=== PATIENT | female | born 1960 | race Caucasian/White ===

== ENCOUNTER 2021-07-19 10:23 | Emergency (ER) | payer OTHER, SELFPAY ==
[2021-07-19] MEDS ORDERED: ONDANSETRON 4 MG/2 ML VIAL ONE (10:55)
[2021-07-19] MEDS ORDERED: NA CHLORIDE 0.9% 500 ML ONE (10:55)
[2021-07-19 11:14] LABS: Absolute Lymphocytes (CBC) 2.1 K/uL (0.7-4.9); Basophils % 0.7 % (0-1.3); Hematocrit 40.6 % (36.0-45.0); MPV 7.1 fL (7.6-11.3); RBC Red Blood Cell Count 4.24 M/uL (3.86-4.86)
[2021-07-19 11:28] LABS: Albumin 4.1 g/dL (3.4-5.0); Bilirubin Direct 0.1 mg/dL (0-0.2); Bilirubin Total 0.4 mg/dL (0.2-1.0); Potassium 3.9 mmol/L (3.5-5.1)
--- NOTE | 2021-07-19 12:22 | RAD REPORT ---
EXAM DESCRIPTION: CT - Abdomen Pelvis W Contrast - 07/19/2021 11:57 am CLINICAL HISTORY: Abd pain;Nausea / vomiting COMPARISON: No comparisons TECHNIQUE: Biphasic, helical CT imaging of the abdomen and pelvis was performed following 100 ml non -ionic IV contrast. No oral contrast administered. All CT scans are performed using dose optimization technique as appropriate and may include automated exposure control or mA/KV adjustment according to patient size. FINDINGS: No suspicious findings in the lung bases. Liver size is normal with no focal liver parenchymal lesion. No portal vein abnormality seen. There i s no liver capsule nodularity. No splenomegaly or focal splenic finding. No mass in the pancreatic pa renchyma. Pancreatic duct is mildly prominent. No peripancreatic fluid or inflammatory stranding. Well filled gallbladder shows no wall thickening or edema. Gallstones can be occult on CT imaging. B iliary tree is prominent and there is pneumobilia in the nondependent left lobe biliary tree radicles . Correlation is needed with any prior sphincterotomy procedure. Duct stones can be occult. Symmetric renal function is seen with no hydronephrosis or suspicious renal mass. No pyelonephritis o r acute parenchymal process. No bladder abnormalities. No adrenal abnormalities. Uterus is absent. Ov ann are absent or atrophic. No adnexal mass identified. Stearns of gastric antrum appears thickened and edematous. Small focal fluid collection (image 26/91) i s favored to be fluid trapped between mucosal folds rather than a wall ulceration or fluid collection . No dilated large or small bowel. No appendicitis findings. No free air or pneumatosis. No hernia, m ass or bulky lymphadenopathy. No suspicious bony findings. Dense for age arterial tree calcifications present in the upper abdomen. IMPRESSION: Wall thickening and edema of the gastric antrum suspicious for the gastric antritis, pos sibly with ulceration. Correlation is needed with clinical presentation. Well filled gallbladder seen without wall thickening or edema. Biliary tree shows mild dilatation wit h pneumobilia in the left lobe biliary radicles. Correlation is needed with any prior sphincterotomy procedure. A duodenal or pancreatic head mass is not seen.
[2021-07-19] MEDS ORDERED: MAGNES/ALUMIN/SIMET 30ML UCUP ONE (13:52)
[2021-07-19] MEDS ORDERED: MORPHINE 4 MG/ML SYR ONE (13:53)
[2021-07-19] MEDS ORDERED: LIDOCAINE VISCOUS 2% SOLN 15 ML UDC ONE (13:53)
[2021-07-19] MEDS ORDERED: PANTOPRAZOLE 40 MG INJ ONE (13:55)
--- NOTE | 2021-07-19 14:02 | EDPHYS ---
Physician Documentation [facility] Name: Valeri Lincoln Age: 60 yrs Sex: Female : 1960 Arrival Date: 07/19/2021 Time: : Bed 6 Private MD: ED Physician Jose Miguel Lofton HPI: 07/19 10:49 This 60 yrs old Female presents to ER via Ambulatory with complaints of rn Abdominal Pain, Vomiting. 10:49 The patient presents to the emergency department with nausea, vomiting, abdominal pain. rn Onset: The symptoms/episode began/occurred 3 day(s) ago. Possible causes: unknown. The symptoms are aggravated by nothing. The symptoms are alleviated by nothing. Associated signs and symptoms: Pertinent positives: abdominal pain, nausea, vomiting, Pertinent negatives: fever, GI bleeding. Severity of symptoms: At their worst the symptoms were mild in the emergency department the symptoms are unchanged. The patient has experienced a previous episode. The patient has not recently seen a physician. Patient reports upper abdominal pain associated with nausea and vomiting. No blood in emesis or dark stool. States started 3 days ago. States has had this once before and was told could not take any ibuprofen anymore. Reports new to the area and does not have a PCP or specialist here. Denies fever. Denies trauma.. Historical: - Allergies: 10:41 flu shot; ll1 - PMHx: 10:41 Hypertensive disorder; stomach problems; ll1 - PSHx: 10:41 section; hysterectomy; R leg reconstruction; ll1 - Immunization history:: Client reports having NOT received the Covid vaccine. - Social history:: Smoking status: Patient reports the use of cigarette tobacco products, smokes one-half pack cigarettes per day. - Family history:: not pertinent. - Hospitalizations: : No recent hospitalization is reported. ROS: 10:49 Constitutional: Negative for fever, chills, and weight loss, Eyes: Negative for injury, rn pain, redness, and discharge, Neck: Negative for injury, pain, and swelling, Cardiovascular: Negative for chest pain, palpitations, and edema, Respiratory: Negative for shortness of breath, cough, wheezing, and pleuritic chest pain, Abdomen/GI: Negative for diarrhea, and constipation Back: Negative for injury and pain, MS/Extremity: Negative for injury and deformity, Skin: Negative for injury, rash, and discoloration, Neuro: Negative for headache, numbness, tingling, and seizure. Exam: 10:49 Constitutional: This is a well developed, well nourished patient who is awake, alert, rn and in no acute distress. Ambulatory to room without difficulty or requiring assistance Head/Face: Normocephalic, atraumatic. Eyes: Periorbital areas with no swelling, redness, or edema. Cardiovascular: Regular rate and rhythm. No pulse deficits. Respiratory: No increased work of breathing, no retractions or nasal flaring. Abdomen/GI: Soft, mild epigastric tenderness, no rebound or masses Skin: Warm, dry MS/ Extremity: Pulses equal, no cyanosis. Neuro: Awake and alert, GCS 15 Vital Signs: 10:42 BP 150 / 77; Pulse 83; Resp 16; Temp 97.9; Pulse Ox 100% ; Weight 41.73 kg; Height 5 ll1 ft. 3 in. (160.02 cm); Pain 10/10; 12:05 BP 199 / 88; Pulse 73; Resp 17; Pulse Ox 98% on R/A; tw2 13:10 BP 198 / 86; Pulse 86; Resp 20; Pulse Ox 100% ; Pain 10/10; jh6 14:20 BP 147 / 70; Pulse 75; Resp 17; Pulse Ox 99% on R/A; tw2 10:42 Body Mass Index 16.30 (41.73 kg, 160.02 cm) ll1 MDM: 10:36 Patient medically screened. rn 14:00 Differential diagnosis: Nonspecific abd pain, gastritis, cholecystitis, pancreatitis, rn diverticulitis, viral gastroenteritis, gastroenteritis, PUD, duodenitis. Data reviewed: vital signs, nurses notes, lab test result(s), radiologic studies, CT scan, and as a result, I will discharge patient. Counseling: I had a detailed discussion with the patient and/or guardian regarding: the historical points, exam findings, and any diagnostic results supporting the discharge/admit diagnosis, lab results, radiology results, the need for outpatient follow up, to return to the emergency department if symptoms worsen or persist or if there are any questions or concerns that arise at home. Response to treatment: the patient's symptoms have mildly improved after treatment, and as a result, I will discharge patient. Special discussion: I discussed with the patient/guardian in detail that at this point there is no indication for admission to the hospital. It is understood, however, that if the symptoms persist or worsen the patient needs to return immediately for re-evaluation. Based on the history and exam findings, there is no indication for further emergent testing or inpatient evaluation. I discussed with the patient/guardian the need to see the student support services director for further evaluation of the symptoms. ED course: Patient improved, CT shows possible gastritis or peptic ulcer disease. Patient was supposed to be on antacids and has not been taking them. Improved after antacid therapy here. Will discharge home with GI follow-up for upper endoscopy and given return precautions.. 07/19 10:48 Order name: Basic Metabolic Panel; Complete Time: 12:27 rn 07/19 10:48 Order name: CBC with Diff; Complete Time: 12:27 rn 07/19 10:48 Order name: Hepatic Function; Complete Time: 12:27 rn 07/19 10:48 Order name: Lipase; Complete Time: 12:27 rn 07/19 10:48 Order name: CT Abd/Pelvis - IV Contrast Only; Complete Time: 12:27 rn 07/19 10:48 Order name: IV Saline Lock; Complete Time: 11:34 rn 07/19 10:48 Order name: Labs collected and sent; Complete Time: 11:34 rn Administered Medications: 11:44 Drug: NS 0.9% 500 ml Route: IV; Rate: bolus; Site: right forearm; jh6 12:05 Follow up: Response: No adverse reaction jh6 13:00 Follow up: IV Status: Completed infusion; IV Intake: 500ml jh6 11:45 Drug: Zofran (Ondansetron) 4 mg Route: IVP; Site: right forearm; jh6 13:40 Follow up: Response: Nausea is decreased jh6 14:03 Drug: morphine 4 mg Route: IVP; Site: right forearm; jh6 14:22 Follow up: Response: No adverse reaction; Pain is decreased jh6 14:03 Drug: GI Cocktail without - (Maalox Suspension 30 ml, Lidocaine Liquid 2 % 15 jh6 ml) Route: PO; 14:22 Follow up: Response: No adverse reaction; Pain is decreased jh6 14:03 Drug: ProTONIX (pantoprazole) 40 mg Route: IVP; Site: right wrist; jh6 14:22 Follow up: Response: No adverse reaction; Pain is decreased jh6 Disposition Summary: 07/19/21 14:02 Discharge Ordered Location: Home rn Problem: new rn Symptoms: have improved rn Condition: Stable rn Diagnosis - Gastritis, unspecified rn - Abdominal pain, unspecified rn - Nausea with vomiting, unspecified rn Followup: rn - With: Cesar Barahona MD - When: As needed - Reason: Recheck today's complaints, Re-evaluation by your physician Discharge Instructions: - Discharge Summary Sheet rn - Abdominal Pain, Adult rn - Nausea and Vomiting, Adult rn - Gastritis, Adult rn Forms: - Medication Reconciliation Form rn - Thank You Letter rn - Antibiotic data governance consultant - Prescription Opioid Use rn Prescriptions: - ondansetron 4 mg Oral tablet,disintegrating - place 1 tablet by TRANSLINGUAL route every 8 hours As needed; 15 tablet; rn Refills: 0, Product Selection Permitted - Protonix 40 mg Oral Tablet - take 1 tablet by ORAL route once daily; 30 tablet; Refills: 0, Product rn Selection Permitted Signatures: Dispatcher [employer] Jose Miguel Lara MD MD rn Lewis, Lynsay RN RN ll1 Maria Vallecillo RN RN jh6
--- NOTE | 2021-07-19 14:02 | ER ---
Nurse's Notes [facility] Name: Valeri Lincoln Age: 60 yrs Sex: Female : 1960 Arrival Date: 07/19/2021 Time: 10:27 Bed 6 Private MD: Diagnosis: Gastritis, unspecified;Abdominal pain, unspecified;Nausea with vomiting, unspecified Presentation: 07/19 10:42 Chief complaint: Patient states: Abd pain with N/V for 3 days. Coronavirus screen: [facility] Vaccine status: Patient reports being unvaccinated. Client denies travel out of the [place] in the last 14 days. nausea, vomiting. Client presents with at least one sign or symptom that may indicate coronavirus-19. Standard/surgical mask placed on the client. Ebola Screen: Patient denies travel to an Ebola-affected area in the 21 days before illness onset. Initial Sepsis Screen: Does the patient meet any 2 criteria? No. Patient's initial sepsis screen is negative. Does the patient have a suspected source of infection? Yes: Acute abdominal pain. Risk Assessment: Do you want to hurt yourself or someone else? Patient reports no desire to harm self or others. Onset of symptoms was July 17, 2021. 10:42 Method Of Arrival: Ambulatory [facility] 10:42 Acuity: SANDEEP 3 ll1 Triage Assessment: 10:49 General: Appears in no apparent distress. Behavior is calm, cooperative. Pain: 6 Complains of pain in abdomen. Historical: - Allergies: 10:41 flu shot; ll1 - PMHx: 10:41 Hypertensive disorder; stomach problems; ll1 - PSHx: 10:41 section; hysterectomy; R leg reconstruction; ll1 - Immunization history:: Client reports having NOT received the Covid vaccine. - Social history:: Smoking status: Patient reports the use of cigarette tobacco products, smokes one-half pack cigarettes per day. - Family history:: not pertinent. - Hospitalizations: : No recent hospitalization is reported. Screenin:47 Abuse screen: Denies threats or abuse. Nutritional screening: No deficits noted. 6 Tuberculosis screening: No symptoms or risk factors identified. Fall Risk None identified. Assessment: 10:48 General: Appears in no apparent distress. comfortable. GI: Bowel sounds present X 4 jh6 quads. hyperactive in right upper quadrant, left upper quadrant, right lower quadrant and left lower quadrant Abd is soft Abdomen is tender to palpation X 4 quads. 11:46 Reassessment: No changes from previously documented assessment. jh6 13:09 Reassessment: Patient and/or family updated on plan of care and expected duration. Pain jh6 level reassessed. Patient states feeling better. nausea is decreased but states pain to l lower abd still present.. General: Appears in no apparent distress. 13:13 Pain: Complains of pain in left lower quadrant Pain currently is 10 out of 10 on a pain jh6 scale. 14:20 Reassessment: No changes from previously documented assessment. Patient and/or family tw2 updated on plan of care and expected duration. Pain level reassessed. Vital Signs: 10:42 BP 150 / 77; Pulse 83; Resp 16; Temp 97.9; Pulse Ox 100% ; Weight 41.73 kg; Height 5 ll1 ft. 3 in. (160.02 cm); Pain 10/10; 12:05 BP 199 / 88; Pulse 73; Resp 17; Pulse Ox 98% on R/A; tw2 13:10 BP 198 / 86; Pulse 86; Resp 20; Pulse Ox 100% ; Pain 10/10; jh6 14:20 BP 147 / 70; Pulse 75; Resp 17; Pulse Ox 99% on R/A; tw2 10:42 Body Mass Index 16.30 (41.73 kg, 160.02 cm) ll1 ED Course: 10:27 Patient arrived in ED. mr 10:36 Jose Miguel Lofton MD is Attending Physician. rn 10:41 Arm band placed on Patient placed in an exam room, on a stretcher. ll1 10:44 Triage completed. ll1 10:44 Maria Vallecillo, SOMMER is Primary Nurse. jh6 10:48 Placed in gown. Bed in low position. Call light in reach. Side rails up X 1. jh6 11:15 Missed attempt(s): 22 gauge in right antecubital area. IV discontinued, bleeding tp1 controlled, Pressure dressing applied. 11:16 Missed attempt(s):. Inserted saline lock: 22 gauge in left antecubital area, using tp1 aseptic technique. Infiltration noted when flushing IV discontinued, bleeding controlled, Pressure dressing applied. 11:45 Awaiting: pt difficult iv sick. third attempt successful. unable to get urine sample at [facility] this time. 11:57 CT Abd/Pelvis - IV Contrast Only In Process Unspecified. EDMS 12:04 Awaiting radiology results. jh6 13:09 Resting quietly. jh6 14:01 Cesar Barahona MD is Referral Physician. rn 14:20 Awaiting: transportation and re-evaluation after IV pain medicine. tw2 14:22 No apparent distress. Resting quietly. jh6 14:35 No provider procedures requiring assistance completed. jh6 14:35 IV discontinued, intact, bleeding controlled, No redness/swelling at site. Pressure jh6 dressing applied. Administered Medications: 11:44 Drug: NS 0.9% 500 ml Route: IV; Rate: bolus; Site: right forearm; jh6 12:05 Follow up: Response: No adverse reaction jh6 13:00 Follow up: IV Status: Completed infusion; IV Intake: 500ml 6 11:45 Drug: Zofran (Ondansetron) 4 mg Route: IVP; Site: right forearm; jh6 13:40 Follow up: Response: Nausea is decreased jh6 14:03 Drug: morphine 4 mg Route: IVP; Site: right forearm; jh6 14:22 Follow up: Response: No adverse reaction; Pain is decreased jh6 14:03 Drug: GI Cocktail without - (Maalox Suspension 30 ml, Lidocaine Liquid 2 % 15 jh6 ml) Route: PO; 14:22 Follow up: Response: No adverse reaction; Pain is decreased jh6 14:03 Drug: ProTONIX (pantoprazole) 40 mg Route: IVP; Site: right wrist; jh6 14:22 Follow up: Response: No adverse reaction; Pain is decreased 6 Intake: 13:00 IV: 500ml; Total: 500ml. 6 Outcome: 14:02 Discharge ordered by . rn 14:02 Discharged to home ambulatory. jh6 14:02 Condition: improved 14:02 Discharge instructions given to Instructed on discharge instructions, follow up and referral plans. Demonstrated understanding of instructions, follow-up care, medications. 14:44 Patient left the ED. 6 Signatures: Dispatcher [employer] EDDC CastellanosNeris Roman, MD MD rn Wise, Tara, RN RN 2 Jonnie Lees RN RN 1 Maria Vallecillo RN RN 6 Pricilla Renteria tp1 Corrections: (The following items were deleted from the chart) 11:22 11:15 Missed attempt(s): 22 gauge in right antecubital area. IV discontinued, Pressure tp1 dressing applied, tp1
[2021-07-19 15:14] VITALS: TEMP 97.9
[2021-07-19 15:19] VITALS: BP 147/70; O2SAT 99
== END 2021-07-19 14:44 | disposition home or self-care (01) ==
LOC: ER 10:23
DX: K29.70 Gastritis, unspecified, without bleeding (principal); R11.2 Nausea with vomiting, unspecified; I10 Essential (primary) hypertension; F17.210 Nicotine dependence, cigarettes, uncomplicated; Z88.7 Allergy status to serum and vaccine
CPT/HCPCS: 85025; 80048; 36415; 80076; 83690; 74177; 99284; Q9967; C9113; J7040; J2405